=== PATIENT | female | born 1945 | race Caucasian/White ===

== ENCOUNTER 2016-05-16 04:32 | Day surgery (SDC) | payer MEDICARE, OTHER ==
[2016-05-12 17:54] LABS: HEMATOCRIT 39.4 % (36.0-48.0); HEMOGLOBIN 13.1 g/dL (12.0-16.0)
--- NOTE | ~2016-05-16 | OP ---
Record Of Operation [facility] [address] [place]. [address] NAME: HODAN DIXON : 41 STATUS : REG [facility] PAT#: [id number] AGE: 70 ADM/REG DATE : 05/16/16 MR#: [id number] REPORT SERV DATE: 05/16/16 DICTATED BY: DARVIN SHANKAR DATE: 05/16/16 REPORT STATUS : Draft TRANSCRIBED BY: MODIris DATE: 05/16/16 DATE OF PROCEDURE: 05/16/2016 PREOPERATIVE DIAGNOSIS: Failed battery for spinal column stimulator. POSTOPERATIVE DIAGNOSIS: Failed battery for spinal column stimulator. PROCEDURES: 1. Hardware removal, the right lower lumbar spine. 2. Implantation of new battery, spinal column stimulator. DISPATCHER RADIOACTIVE WASTE DISPOSAL: Keegan Leonard. ANESTHESIA: General. BLOOD LOSS: 5 mL. INDICATIONS FOR SURGERY: A 70-year-old female who had a previous spinal column stimulator implanted. The battery is in the right buttock in a subcutaneous pocket. The patient has had good success with the stimulator, but recently the stimulator failed. The spinal column stimulator system was interrogated and found to have a battery that was and would not, however, recharge. The patient is now brought to surgery for exchange. Prior to surgery, risks, benefits, alternatives, and expectations were explained. DESCRIPTION OF PROCEDURE: Antibiotic prophylaxis was given. The patient was brought to the operative suite. General anesthetic including endotracheal intubation was administered. The patient was placed prone on a Josse spine frame. Bony prominences were carefully padded. Thoracolumbar spine scrubbed with Hibiclens solution. DuraPrep was painted. Sterile drapes applied. The 3 cm skin incision was carried out over the midportion of the battery on the right side. The subcutaneous tissue was sharply dissected. A pseudocapsule around the battery was opened and widened. The battery itself was extracted from the wound. The connector cables appeared to be intact. The connector cables were loosened and removed from the old non working battery. A new battery was attached to the connecting wires, and they were tightened into position. The system was again interrogated and found to be intact and functioning. After irrigation, the subcutaneous tissue closed with 2-0 Vicryl sutures, 2-0 vertical mattress nylon suture used for skin closure. Sterile dressings were applied. The patient awakened, extubated, taken to recovery room in satisfactory condition having tolerated procedure well. Sponge, needle, and instrument counts were correct. No intraoperative complications were noted. Record Of Operation [facility] [address] [place]. [address] NAME: HODAN DIXON : 41 STATUS : REG [facility] PAT#: [id number] AGE: 70 ADM/REG DATE : 05/16/16 MR#: [id number] REPORT SERV DATE: 05/16/16 DICTATED BY: DARVIN SHANKAR DATE: 05/16/16 REPORT STATUS : Draft TRANSCRIBED BY: MODIris DATE: 05/16/16 /SEN Darvin Shankar D.O. / [id number] CC: Jesusita Dubon TRACY
[~2016-05-16 04:32] MED LIST: ASAB PO; METHSCOPOLAM2.5 MG PO; METHSCOPOLAMINE OR; NOR50 PO; PERCOCET 10/3251 TAB PO; PERCOCET1 TA4 PO; SOMATAB PO; X5 PO
== END 2016-05-16 17:47 | disposition home or self-care (01) ==
LOC: SDC 04:32
PROVIDERS: Orthopaedic Surgery Orthopaedic Surgery of the Spine
PROC: 0JPT0MZ Removal of Stimulator Generator from Trunk Subcutaneous Tissue and Fascia, Open Approach (ICD-10-PCS; 2016-05-16)
PROC: 0JH70MZ Insertion of Stimulator Generator into Back Subcutaneous Tissue and Fascia, Open Approach (ICD-10-PCS; principal; 2016-05-16 05:45)
DX: Z45.42 Encounter for adjustment and management of neurostimulator (principal); F41.9 Anxiety disorder, unspecified; Z79.82 Long term (current) use of aspirin; Z79.891 Long term (current) use of opiate analgesic; Z79.899 Other long term (current) drug therapy; Z90.711 Acquired absence of uterus with remaining cervical stump; Z98.890 Other specified postprocedural states
CPT/HCPCS: 85014; 85018; 88300; 93005; C1767; C1787; J0690; J1170; J2250; J2405; J2710; J3010; J3370